=== PATIENT | female | born 1960 | race Asian ===

== ENCOUNTER → 2016-12-12 | Outpatient (CLI) | payer OTHER ==
[~2016-12-12] MED LIST: CELEXA20 MG PO; FLE10 PO; LIPI10 PO; MELOXICAM15 M1 PO; METFORMIN HCL500 MG PO; MOT600 PO; NOR5 PO; NORCO1 TA2 PO; NUVIGIL250 M1 PO; POTASSIUM; TOPROL XL50 MG PO
== END | disposition home or self-care (01) ==
LOC: LB 12:27
DX: E03.9 Hypothyroidism, unspecified (principal); E11.65 Type 2 diabetes mellitus with hyperglycemia